=== PATIENT | female | born 1985 | race Native Hawaiian/Other Pacific Islander ===

== ENCOUNTER 2018-03-25 15:03 | Emergency (ER) | payer OTHER ==
[2018-03-25 15:14] VITALS: BP 121/63; PULSE 61; RESP 19; TEMP 98.9; O2SAT 98
--- NOTE | 2018-03-25 15:46 | ED PDOC ---
HPI: Wound Care - HPI Time Seen by Provider: 03/25/18 15:14 Chief Complaint (Nursing): Needle Stick Chief Complaint (Provider): Needle stick injury History Per: Patient Exam Limitations: no limitations Onset/Duration Of Symptoms: Mins Current Symptoms Are (Timing): Still Present Additional Complaint(s): 32 year old female presents to the ED for evaluation of a needle stick injury to the right palm. 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 Patient states that she expressed blood from the needle stick site and cleaned wound with soap and water prior to arrival in the ED. She reports localized pain to the needle stick site. Patient has no other complaints at this time. Tetanus vaccination UTD. PMD: Dayanara Simpson V Past Medical History Reviewed: Historical Data, Nursing Documentation, Vital Signs Vital Signs: Last Vital Signs Temp 98.9 F 03/25/18 15:13 Pulse 61 03/25/18 15:13 Resp 19 03/25/18 15:13 BP 121/63 03/25/18 15:13 Pulse Ox 98 03/25/18 15:13 - Medical History PMH: Hypothyroidism - Surgical History Other surgeries: Thyroidectomy - Family History Family History: States: Unknown Family Hx - Allergies Allergies/Adverse Reactions: Allergies Allergy/AdvReac Type Severity Reaction Status Date / Time No Known Allergies Allergy Verified 03/25/18 15:17 Review of Systems ROS Statement: Except As Marked, All Systems Reviewed And Found Negative Skin: Positive for: Other (Needle stick injury to right palm) Physical Exam - Reviewed Nursing Documentation Reviewed: Yes Vital Signs Reviewed: Yes - Physical Exam Comments: GENERAL APPEARANCE: Patient is awake, alert, oriented x 3, in no acute distress. SKIN: Warm, dry; (-) cyanosis. CHEST AND RESPIRATORY: (-) rales, (-) rhonchi, (-) wheezes; breath sounds equal bilaterally. Respirations even and nonlabored. HEART AND CARDIOVASCULAR: (-) irregularity RIGHT HAND: Small erythematous puncture wound to the right thenar eminence, (-) ecchymosis, (-) active bleeding. Full ROM throughout. Sensation and capillary refill intact NEURO AND PSYCH: Mental status as above. Gait: steady. Speech: clear. (-) facial asymmetry - Laboratory Results Result Diagrams: 03/25/18 16:13 - ECG O2 Sat by Pulse Oximetry: 98 (RA) Pulse Ox Interpretation: Normal Medical Decision Making Medical Decision Making: Initial Impression: needle stick injury Initial Plan: --CMP --Hepatitis B Core stat --Hepatitis B surface stat --Hepatitis C antibody stat --HIV rapid stat --Rapid plasma stat 1745 Rapid HIV: non-reactive CMP unremarkable. Patient declined PEP given that source patient is being tested. Patient would like to wait for source patient's results before taking the medication regimen for PEP. On exam, patient remains AAOx3, in no acute distress. Lungs clear to auscultation, cardiac RRR, repeat neuro exam shows no focal findings. Vitals stable. Lab/Diagnostic results d/w the patient in great detail. Diagnosis of needlestick injury d/w the patient. Based on history, exam and diagnostic results, plan will be for outpatient follow up with PMD. Repeat labs in 6 months advised. Patient instructed to follow-up with pmd / referral provided / the clinic in 1- 2 days without fail. Return to the emergency room at any time for any new or worsening symptoms. Patient states she fully agrees with and understands discharge instructions. States that she agrees with the plan and disposition. Verbalized and repeated discharge instructions and plan. I have given the patient opportunity to ask any additional questions. Scribe Attestation: Documented by Dominik Mcintosh acting as a scribe for Karlene CHANG Provider Scribe Attestation: All medical record entries made by the Scribe were at my direction and personally dictated by me. I have reviewed the chart and agree that the record accurately reflects my personal performance of the history, physical exam, medical decision making, and the department course for this patient. I have also personally directed, reviewed, and agree with the discharge instructions and disposition. Disposition - Clinical Impression Clinical Impression: Needle stick injury - Patient ED Disposition Is Patient to be Admitted: No Counseled Patient/Family Regarding: Studies Performed, Diagnosis, Need For Followup - Disposition Referrals: Dayanara Payne DO [Family Provider] - Disposition: Routine/Home Disposition Time: 17:50 Condition: STABLE Additional Instructions: The emergency medical care you received today was directed at your acute s ymptoms. If you were prescribed any medication, please fill it and take as directed. It may take several days for your symptoms to resolve. Return to the Emergency Department if your symptoms worsen, do not improve, or if you have any other problems. Please contact your doctor in 2 days for re-evaluation and follow up / or call one of the physicians/clinics you have been referred to that are listed on the Patient Visit Information form that is included in your discharge packet. Bring any paperwork you were given at discharge with you along with any medications you are taking to your follow up visit. Our treatment cannot replace ongoing medical care by a primary care provider (PCP) outside of the emergency department. Instructions: Wound Care, Blood or Body Fluid Exposure Forms: [employer] (Niuean) Print Language: CENTRAL AFRICAN - POA Present On Arrival: None Results - Lab Results Lab Results: 03/25/18 03/25/18 16:13 16:13 Sodium 141 Potassium 4.0 Chloride 105 Carbon Dioxide 25 Anion Gap 15 BUN 12 Creatinine 0.6 L Est GFR ( Amer) > 60 Est GFR (Non-Af Amer) > 60 Random Glucose 111 H Calcium 9.1 Total Bilirubin 0.3 AST 22 ALT 32 Alkaline Phosphatase 43 Total Protein 8.0 Albumin 4.2 Globulin 3.8 Albumin/Globulin Ratio 1.1 HIV-1 Ab Rapid Screen Non reactive
[2018-03-25 16:30] LABS: ALB/GLOB RATIO 1.1 (1.0-2.1); ALBUMIN 4.2 g/dL (3.5-5.0); ALT/SGPT 32 U/L (9-52); AST/SGOT 22 U/L (14-36); BLOOD UREA NITROGEN 12 mg/dl (7-17); CALCIUM 9.1 mg/dL (8.4-10.2); GFR NON-AFRICAN AMERICAN > 60
[2018-03-26 12:55] LABS: HEPATITIS B SURFACE AG Negative (NEGATIVE)
[2018-03-26 13:00] LABS: HEPATITIS B CORE AB NEGATIVE (NEGATIVE)
== END 2018-03-25 18:08 | disposition home or self-care (01) ==
LOC: H.ER 15:03
DX: W46.0XXA Contact with hypodermic needle, initial encounter (principal); Z77.21 Contact with and (suspected) exposure to potentially hazardous body fluids